=== PATIENT | male | born 1945 | race Caucasian/White ===

== ENCOUNTER 2021-01-21 14:20 | Inpatient (IN) | payer MEDICARE ==
[~2021-01-21] VITALS: Ht 172.7 cm; Wt 72.6 kg
[~2021-01-21 14:20] MED LIST: SULTRIDS PO
[2021-01-21 15:18] LABS: Hematocrit 30.7 % (37.0-53.0); Hemoglobin 11.3 g/dL (13.5-17.5); Mean Corpuscular HGB 34.6 pg (26.0-34.0); Mean Corpuscular HGB Conc 36.8 g/dL (31.5-36.5); Mean Corpuscular Volume 94 fL (80-100); Mean Platelet Volume 9.3 fL (9.1-12.4); Platelet Count 190 K/mm3 (150-400); RDW Coefficient Variation 12.3 % (11.7-14.2); RDW Standard Deviation 42.8 fL (35.1-46.3); Red Blood Cell Count 3.27 M/mm3 (4.30-5.90); White Blood Cell Count 24.42 K/mm3 (4.00-11.30)
[2021-01-21 15:37] LABS: Alanine Aminotransfer (ALT/SGP 24 U/L (12-78); Albumin, Blood 2.5 g/dL (3.4-5.0); Albumin/Globulin Ratio 0.6 (0.8-1.8); Alk Phos 93 U/L (50-136); Anion Gap 11 mmol/L (6-16); Aspartate Aminotrans (AST/SGOT 30 U/L (12-37); Bilirubin, Total 0.6 mg/dL (0.1-1.0); Blood Urea Nitrogen 64 mg/dL (8-24); Bun/Creatinine Ratio 23.5 (12.0-20.0); CO2, Blood 24 mmol/L (21-32); Calcium, Blood 8.3 mg/dL (8.5-10.1); Chloride, Blood 89 mmol/L (98-108); Creatinine, Blood 2.72 mg/dL (0.60-1.20); Ethanol (Alcohol), Blood, Med <3 mg/dL; Globulin, Blood 4.1 g/dL (2.2-4.0); Glomerular Filtration Rate 24 (60-); Glucose, Blood 104 mg/dL (70-99); International Normalized Ratio 1.09; Potassium, Blood 3.9 mmol/L (3.5-5.5); Prothrombin Time Results 11.6 Sec (9.7-11.5); Sodium, Blood 124 mmol/L (136-145); Total Protein, Blood 6.6 g/dL (6.4-8.2)
[2021-01-21 15:48] LABS: BAND PERCENT MAN 12 % (0-8); BASOPHILS PERCENT MAN 0 % (0-2); EOSINOPHILS PERCENT MAN 0 % (0-6); MONOCYTES ABSOLUTE MAN 0.97 K/mm3 (0.16-1.47); MONOCYTES PERCENT MAN 4 % (4-13); NEUTROPHILS ABSOLUTE MAN 23.44 K/mm3 (1.96-9.15); SEG NEUTROPHILS PERCENT MAN 84 % (41-73); TOTAL CELLS COUNTED 100
--- NOTE | 2021-01-21 17:14 | NUR ---
ED Palliative Care Consult Spoke with Dr Aguilar and discussed case. Pt to the ED for altered mentation. Pt to be admitted by hospitalist Madeline. CONSULTANT Madeline enters Pt's room at the same time as this RN. Deedee exams Pt and determines Pt is confused and has poor insight at this time. Madeline speaks with Pt's daughter Esther and discusses plan of care. At this time daughter Esther would like Pt to be full code. Madeline will place inpatient Palliative Care consult. Palliative Care will F/U when Pt is admitted to the floor.
--- NOTE | 2021-01-21 19:00 | NUR ---
ASSUMED CARE RECEIVED REPORT FROM GISELE LOFTON. PT LYING IN BED COMFORTABLY, IN NO ACUTE DISTRESS. VS OBTAINED. PT DENIES NEEDS AT THIS TIME. CALL LIGHT, POSSESSIONS IN REACH, BED IN LOW POSITION WITH ALARMS ON.
--- NOTE | 2021-01-21 20:37 | NUR ---
PHYSICIAN COMMUNICATION SPOKE TO MAHESH JONES REGARDING PT REMOVING TELE AND CRITICAL LACTIC ACID. ORDERS RECEIVED.
--- NOTE | 2021-01-21 22:20 | NUR ---
SPOKE TO MAHESH JONES REGARDING PT'S PENDING TOX SCREEN. NO NEW ORDERS RECEIVED AT THIS TIME.
[2021-01-21 22:54] LABS: U Amphetamine Screen Not Detected; U Barbituate Screen Not Detected; U Benzodiazapine Screen Not Detected; U Cocaine Screen Not Detected; U Methadone Screen Not Detected; U Methamphetamine Screen Not Detected
[2021-01-21 22:55] LABS: U Buprenorphine Screen Not Detected; U Cannabinoids Screen Not Detected; U Opiates Screen Not Detected; U Oxycodone Screen Not Detected; U Phencyclidine Screen Not Detected; U Propoxyphene Screen Not Detected
[2021-01-22 01:12] LABS: Source, Urine Clean Catch
[2021-01-22 01:20] LABS: Bilirubin, Urine Neg (Neg); Blood, Urine 4+ (Neg); Glucose Qualitative, Urine Neg (Neg); Ketones, Urine Neg (Neg); Leukocyte Esterase, Urine 3+ (Neg); Nitrite, Urine Neg (Neg); Protein, Urine 2+ (Neg); Urobilinogen, Urine NORM (Normal)
[2021-01-22 01:30] LABS: Appearance, Urine Cloudy (Clear); Bacteria Many /hpf; Color, Urine Yellow (P-Yellow); Red Blood Cells, Urine Rare /hpf (0-2); Squamous Epithelial Cells Not Seen /hpf (Few); White Blood Cells, Urine TNTC /hpf (0-5)
--- NOTE | 2021-01-22 03:10 | NUR ---
CAMERA MONITORING VERIFIED WITH KUN ERICKSON
--- NOTE | 2021-01-22 04:43 | NUR ---
DIRECTOR MARKET RESEARCH SUMMARY A&O X2-3, CONFUSED AT TIMES. PT LYING IN BED, IN NO ACUTE DISTRESS. VS REVIEWED, HR RUNNING IN 110'S, PT ASYMPTOMATIC; OTHER VS WNL. PT HAS BEEN ASLEEP THROUGHOUT MUCH OF THE NIGHT. SEPSIS IVF INFUSED, MAINTENANCE IVF ONGOING. CALLS OUT FOR FAMILY MEMBERS, OR ASKS FOR ITEMS NOT IN ROOM; RE-ORIENTED TO SURROUNDINGS. NO OTHER ACUTE CHANGES IN CONDITION NOTED. CALL LIGHT AND POSSESSIONS IN REACH, BED IN LOW POSITION WITH ALARMS ON. BILATERAL SOFT WRIST RESTRAINTS IN PLACE. WILL REPORT OFF TO DAY RN.
[2021-01-22 05:25] LABS: Hematocrit 29.6 % (37.0-53.0); Hemoglobin 10.7 g/dL (13.5-17.5); Mean Corpuscular HGB 34.4 pg (26.0-34.0); Mean Corpuscular HGB Conc 36.1 g/dL (31.5-36.5); Mean Corpuscular Volume 95 fL (80-100); Mean Platelet Volume 9.7 fL (9.1-12.4); Platelet Count 158 K/mm3 (150-400); RDW Coefficient Variation 12.6 % (11.7-14.2); RDW Standard Deviation 43.7 fL (35.1-46.3); Red Blood Cell Count 3.11 M/mm3 (4.30-5.90); White Blood Cell Count 27.78 K/mm3 (4.00-11.30)
[2021-01-22 05:45] LABS: Albumin, Blood 2.2 g/dL (3.4-5.0); Anion Gap 14 mmol/L (6-16); Blood Urea Nitrogen 68 mg/dL (8-24); Bun/Creatinine Ratio 24.6 (12.0-20.0); CO2, Blood 18 mmol/L (21-32); Calcium, Blood 7.5 mg/dL (8.5-10.1); Chloride, Blood 99 mmol/L (98-108); Creatinine, Blood 2.76 mg/dL (0.60-1.20); Glomerular Filtration Rate 24 (60-); Glucose, Blood 103 mg/dL (70-99); Phosphorus, Blood 3.5 mg/dL (2.5-4.9); Potassium, Blood 3.3 mmol/L (3.5-5.5); Sodium, Blood 131 mmol/L (136-145)
[2021-01-22 05:47] LABS: BAND PERCENT MAN 22 % (0-8); BASOPHILS PERCENT MAN 0 % (0-2); EOSINOPHILS PERCENT MAN 0 % (0-6); LYMPHOCYTES ABSOLUTE MAN 0.27 K/mm3 (0.84-5.20); LYMPHOCYTES PERCENT MAN 1 % (21-46); MONOCYTES ABSOLUTE MAN 0.55 K/mm3 (0.16-1.47); MONOCYTES PERCENT MAN 2 % (4-13); NEUTROPHILS ABSOLUTE MAN 26.94 K/mm3 (1.96-9.15); SEG NEUTROPHILS PERCENT MAN 75 % (41-73); TOTAL CELLS COUNTED 100
--- NOTE | 2021-01-22 05:55 | NUR ---
SPOKE TO DR. SEWELL REGARDING PT'S HR AVERAGING IN 110'S-120. ORDERS RECEIVED.
--- NOTE | 2021-01-22 11:38 | NUR ---
SPOKE TO PT'S DAUGHTER ADINA BY PHONE AT 1015, GAVE UPDATE ON PATIENT'S CONDITION AND PLAN GOING FORWARD. ADINA STATED THAT SHE IS PATIENT'S POWER OF PRESCHOOL ASSISTANT BUT DID NOT SPECIFY IF LEGAL OR MEDICAL. BEST NUMBER [phone].
--- NOTE | 2021-01-22 12:38 | NUR ---
SPOKE TO PT'S OTHER DAUGHTER EVERARDO WHO LIVES IN [place]. SHE IS VERY CONCERNED ABOUT THE POSSIBILITY OF PT BEING DISCHARGED BACK TO THE SAME ENVIRONMENT. SHE STATED HER SISTER ADINA USES DRUGS AND ALCOHOL, DOES THE PERSON SHE LIVES WITH. ALSO STATED THAT PT HAS BEEN A DAILY ETOH DRINKER FOR MANY YEARS; AND THAT ADINA IS NOT CAPABLE OF TAKING CARE OF PATIENT. EVERARDO DOES NOT HAVE CONTACT WITH ADINA. BEST PHONE NUMBER FOR EVERARDO: [phone]
--- NOTE | 2021-01-22 17:55 | NUR ---
SHIFT SUMMARY: ALERT TO SELF ONLY, IS PLEASANT. RESTRAINTS REMOVED AT 1120 THIS MORNING AND BEHAVIOR HAS BEEN APPROPRIATE. NO EVENTS ON TELEMETRY, SINUS TACH LOW 100'S. COARSE BREATH SOUNDS THROUGHOUT, NICOTINE PATCH PLACED. ASSESSING FOR ETOH W/D SXS; CIWA SCORE HAS BEEN < 8 SO FAR THIS SHIFT. SKIN ON BUTTOCKS SLIGHTLY EXCORIATED; CONDOM CATH PLACED TO KEEP POWER PLANT OPERATOR. ABDOMEN STILL FIRM, NO BM TODAY. APPETITE IS QUITE POOR AND DIFFICULTY SWALLOWING NOTED; SPEECH EVAL ORDERED.
--- NOTE | 2021-01-22 19:05 | NUR ---
ASSUMED CARE RECEIVED REPORT FROM GISELE LOFTON. PT ASLEEP, IN NO ACUTE DISTRESS. RESPS E/U. NO ACUTE NEEDS ASSESSED AT THIS TIME. CALL LIGHT, POSSESSIONS IN REACH, BED IN LOW POSITION WITH ALARMS ON.
--- NOTE | 2021-01-22 19:40 | NUR ---
PHYSICIAN CORRESPONDENCE SPOKE TO MAHESH JONES REGARDING PT'S HR TRENDING IN THE 110'S AND INCREASING/SUSTAINING IN THE 120'S. NOTIFIED OF PT'S CHOKING ON PILLS THIS AM, PER REPORT FROM DAY RN. PHYSICIAN ENTERING ORDERS INTO Faculte. WILL CONTINUE TO ASSESS PT FOR CHANGES IN HR AND CONDITION.
--- NOTE | 2021-01-22 21:00 | NUR ---
CAMERA MONITORING VERIFIED WITH KUN ODOM IN REMOTE MONITORING.
--- NOTE | 2021-01-22 23:25 | NUR ---
THIS RN CALLED PT'S DAUGHTER, EVERARDO, TO PROVIDE AN UPDATE. NO RESPONSE. LEFT A MESSAGE AND PROVIDED MEDICAL FLOOR CONTACT INFORMATION.
--- NOTE | 2021-01-23 03:34 | NUR ---
FUEL CELL DESIGNER SUMMARY PT A&OX1, LOC IMPROVING, CALLS OUT AND MAKES NEEDS KNOWN. ASLEEP AT THIS TIME, IN NO ACUTE DISTRESS. VS REVIEWED,PT TACHYCARDIC, OTHER VS WNL. PT ASYMPTOMATIC. DENIES PAIN. HAS BEEN SLEEPING OFF AND ON THROUGH THE NIGHT. TOLERATED IVF BOLUS WELL, BP'S STABLE. CIWAS STABLE, AVERAGING 4-5. DENIES KITCHEN. TOOK MEDS CRUSHED IN APPLESAUCE, TOLERATED FAIRLY; SWALLOWS THIN LIQUIDS EASILY VIA STRAW, UNINTERESTED IN FURTHER ORAL INTAKE; NO S/S ASPIRATION NOTED. SPEECH EVALUATION PENDING. NO OTHER ACUTE EVENTS NOTED OVERNIGHT. NO ACUTE NEEDS ASSESSED AT THIS TIME. CALL LIGHT, POSSESSIONS IN REACH, BED IN LOW POSITION. WILL CONTINUE TO PROVIDE CARE UNTIL REPORT GIVEN TO ONCOMING RN.
[2021-01-23 05:46] LABS: Bun/Creatinine Ratio 28.1 (12.0-20.0); Calcium, Blood 7.6 mg/dL (8.5-10.1); Creatinine, Blood 2.67 mg/dL (0.60-1.20); Potassium, Blood 3.2 mmol/L (3.5-5.5)
[2021-01-23 07:07] LABS: Hemoglobin 11.7 g/dL (13.5-17.5); Mean Corpuscular HGB 34.5 pg (26.0-34.0); Mean Corpuscular HGB Conc 36.6 g/dL (31.5-36.5); Mean Corpuscular Volume 94 fL (80-100); Platelet Count 141 K/mm3 (150-400); RDW Coefficient Variation 12.9 % (11.7-14.2); RDW Standard Deviation 45.1 fL (35.1-46.3); Red Blood Cell Count 3.39 M/mm3 (4.30-5.90); White Blood Cell Count 22.74 K/mm3 (4.00-11.30)
--- NOTE | 2021-01-23 14:27 | NUR ---
Pt resting in bed with his eyes closed. Pt appears comfortable with no S/S of distress at this time. This RN did not disturb Pt at this time. Spoke with Bedside RN Eileen, discussed case, and reviewed plan of care. Pt remains confused. Daughter Esther called today and reports plan to visit Pt tomorrow. Spoke with Caremanager Yelena and discussed case. Plan to call APS for report on investigation. Daughter Augusta expresses concerns regarding Pt going back home to live with Esther. Plan: Discuss code status with Pt if mentation improves. If needed will discuss with both daughters and discuss considering completing POLST.
--- NOTE | 2021-01-23 18:40 | NUR ---
SHIFT SUMMARY PT A&O TO SELF. PT CAN OCCASIONAL LET STAFF KNONW OF NEEDS IF IN ROOM, HE DOES NOT USE CALL LIGHT. PT HAS BEEN PLESANT AND ACCEPTING OF CARE. PT DID NOT EAT MUCH DURING SHIFT. IN MORNING PT WAS AFIB 110, AFTERNOON PT WAS SINUS TACH 120 WITH PVC, DR NOTIFED AND MEDICATION UPDATED. PT RECEIVED ECHO IN AFTERNOON. HE PULLED OFF CONDOM CATH TWO TIMES THIS SHIFT. PT RESTING IN BED, CALL LIGHT W/IN REACH.
[2021-01-23 18:56] LABS: Magnesium, Blood 1.3 mg/dL (1.6-2.4); Percent Saturation 14.6 % (20.0-50.0)
--- NOTE | 2021-01-23 21:20 | NUR ---
1950 PT RESTING COMFORTABLY IN BED; ABLE TO FOLLOW SIMPLE VERBAL COMMANDS; BED ALARM APPLIED FOR SAFETY.
--- NOTE | 2021-01-24 03:23 | NUR ---
SHIFT SUMMARY: 75 Y/O MALE RESTED COMFORTABLY IN BED ALL SHIFT; PT ALERT AND ORIENTED X 1, ABLE TO FOLLOW SIMPLE VERBAL COMMANDS; DENIES PAIN OR NAUSEA; CIWA 8; PT HAD EPISODE OF AGITATION BEGINNING OF SHIFT WITH ZYPREXA 10MG PO GIVEN WITH GOOD RELIEF FELT HE SLEPT WELL REST OF SHIFT; BED ALARM APPLIED FOR SAFETY, BED LOW POSITION WITH CALL LIGHT AT SIDE.
[2021-01-24 05:57] LABS: BASOPHILS ABSOLUTE AUTO 0.07 K/mm3 (0.00-0.23); BASOPHILS PERCENT AUTO 0 % (0-2); EOSINOPHILS ABSOLUTE AUTO 0.03 K/mm3 (0.00-0.68); EOSINOPHILS PERCENT AUTO 0 % (0-6); Hematocrit 32.7 % (37.0-53.0); Hemoglobin 11.8 g/dL (13.5-17.5); IMMATURE GRAN ABSOLUTE AUTO 0.86 K/mm3 (0.00-0.10); IMMATURE GRAN PERCENT AUTO 5 % (0-1); LYMPHOCYTES ABSOLUTE AUTO 0.76 K/mm3 (0.84-5.20); LYMPHOCYTES PERCENT AUTO 4 % (21-46); MONOCYTES ABSOLUTE AUTO 1.35 K/mm3 (0.16-1.47); MONOCYTES PERCENT AUTO 7 % (4-13); Mean Corpuscular HGB 33.8 pg (26.0-34.0); Mean Corpuscular HGB Conc 36.1 g/dL (31.5-36.5); Mean Corpuscular Volume 94 fL (80-100); Mean Platelet Volume 10.2 fL (9.1-12.4); NEUTROPHILS ABSOLUTE AUTO 16.09 K/mm3 (1.96-9.15); NEUTROPHILS PERCENT AUTO 84 % (41-73); Platelet Count 125 K/mm3 (150-400); RDW Coefficient Variation 12.9 % (11.7-14.2); RDW Standard Deviation 44.6 fL (35.1-46.3); Red Blood Cell Count 3.49 M/mm3 (4.30-5.90); White Blood Cell Count 19.16 K/mm3 (4.00-11.30)
[2021-01-24 06:10] LABS: Albumin, Blood 1.9 g/dL (3.4-5.0); Anion Gap 11 mmol/L (6-16); Blood Urea Nitrogen 82 mg/dL (8-24); Bun/Creatinine Ratio 25.3 (12.0-20.0); CO2, Blood 19 mmol/L (21-32); Calcium, Blood 7.4 mg/dL (8.5-10.1); Chloride, Blood 101 mmol/L (98-108); Creatinine, Blood 3.24 mg/dL (0.60-1.20); Glomerular Filtration Rate 20 (60-); Glucose, Blood 113 mg/dL (70-99); Magnesium, Blood 1.7 mg/dL (1.6-2.4); Phosphorus, Blood 3.6 mg/dL (2.5-4.9); Potassium, Blood 3.3 mmol/L (3.5-5.5); Sodium, Blood 131 mmol/L (136-145)
--- NOTE | 2021-01-24 18:42 | NUR ---
SHIFT SUMMARY PT VERY DROWSY THIS MORNING AND DIFFICULT TO ROUSE. DAUGHTER REPORTED HE IS GENERALLY A LATE RISER. DID WAKE LATER THIS AFTERNOON. WAS INCONTINENT BUT WOULD CONTINUE TO SPURT URINE AND LOWER ABDOMEN FELT VERY FIRM. BLADDER SCANNED FOR >1500ML. NOTIFIED MD AND JAMES PLACED. PT TOLERATED WELL. CALLED ADINA/DAUGHTER WHILE IN ROOM AND GAVE UPDATE AND PROVIDED PHONE FOR PT TO SPEAK TO HER. PT HAS MADE NO ATTEMPTS TO CLIMB OOB. EATING POORLY AND SUPPLEMENTS OFFERED BUT WOULDN'T EAT OR DRINK MORE THAN SMALL AMOUNTS.
--- NOTE | 2021-01-25 04:56 | NUR ---
SHIFT SUMMARY PT SLEPT A LOT THIS EVENING. WOKE EASILY WITH STAFF INTERACTION. NO EPISODES OF AGITATION. PT DID ACCIDENTLY PULL HIS IV OUT. NEW IV PLACED TO RFA. PT APPEARS DECONDITIONED. DRINKING FLUIDS WELL. SWELLING FROM HIS SCROTUM DOWN TO HIS FEET. APPEARS TO BE SOME WEEPING FROM SCROTUM. JAMES CATHETER IN PLACE. URINE IS DARK AND WITH A LOT OF SEDIMENT. TELEMETRY READING SR W/ PVC'S AND PAC'S AT 78. VITAL SIGNS STABLE. PT SLEEPING AT THIS TIME. WILL CONTINUE TO MONITOR AND REPORT TO DAY RN.
[2021-01-25 05:05] LABS: BASOPHILS ABSOLUTE AUTO 0.06 K/mm3 (0.00-0.23); BASOPHILS PERCENT AUTO 0 % (0-2); EOSINOPHILS ABSOLUTE AUTO 0.08 K/mm3 (0.00-0.68); EOSINOPHILS PERCENT AUTO 0 % (0-6); Hematocrit 29.5 % (37.0-53.0); Hemoglobin 10.6 g/dL (13.5-17.5); IMMATURE GRAN ABSOLUTE AUTO 1.08 K/mm3 (0.00-0.10); IMMATURE GRAN PERCENT AUTO 6 % (0-1); LYMPHOCYTES ABSOLUTE AUTO 1.18 K/mm3 (0.84-5.20); LYMPHOCYTES PERCENT AUTO 6 % (21-46); MONOCYTES ABSOLUTE AUTO 1.54 K/mm3 (0.16-1.47); MONOCYTES PERCENT AUTO 8 % (4-13); Mean Corpuscular HGB 33.8 pg (26.0-34.0); Mean Corpuscular HGB Conc 35.9 g/dL (31.5-36.5); Mean Corpuscular Volume 94 fL (80-100); Mean Platelet Volume 10.6 fL (9.1-12.4); NEUTROPHILS ABSOLUTE AUTO 15.27 K/mm3 (1.96-9.15); NEUTROPHILS PERCENT AUTO 80 % (41-73); Platelet Count 112 K/mm3 (150-400); RDW Coefficient Variation 13.4 % (11.7-14.2); RDW Standard Deviation 46.4 fL (35.1-46.3); Red Blood Cell Count 3.14 M/mm3 (4.30-5.90); White Blood Cell Count 19.21 K/mm3 (4.00-11.30)
[2021-01-25 05:20] LABS: Albumin, Blood 1.6 g/dL (3.4-5.0); Anion Gap 12 mmol/L (6-16); Blood Urea Nitrogen 82 mg/dL (8-24); Bun/Creatinine Ratio 25.9 (12.0-20.0); CO2, Blood 18 mmol/L (21-32); Calcium, Blood 7.2 mg/dL (8.5-10.1); Chloride, Blood 104 mmol/L (98-108); Creatinine, Blood 3.16 mg/dL (0.60-1.20); Glomerular Filtration Rate 20 (60-); Glucose, Blood 91 mg/dL (70-99); Magnesium, Blood 1.6 mg/dL (1.6-2.4); Phosphorus, Blood 4.2 mg/dL (2.5-4.9); Potassium, Blood 3.1 mmol/L (3.5-5.5); Sodium, Blood 134 mmol/L (136-145)
--- NOTE | 2021-01-25 18:44 | NUR ---
SHIFT SUMMARY PT SLEEPING A LOT TODAY. WOULDN'T EAT MORE THAN A BITE OR TWO OF MEALS. SUPPLEMENTS OFFERED. DAUGHTER IN TO SEE PT THIS AFTERNOON AND PT APPEARED QUITE HAPPY TO SEE HER. HAS A MOIST COUGH BUT DOESN'T APPEAR TO BE IN RESP DISTRESS. LE'S QUITE EDEMATOUS. MD NOTIFIED. LE'S ELEVATED ON PILLOWS. 2 SMALL OPEN AREAS ON BUTTOCKS. DRESSING APPLIED AND KEPT ON SIDE. URINE IN JAMES APPEARS MORE TORY TODAY THAN TEA COLORED.
--- NOTE | 2021-01-26 04:38 | NUR ---
SHIFT SUMMARY PT SLEPT THROUGH MOST OF THE NIGHT. REPOSITIONED IN BED BUT PT TENDS TO PREFER THE RIGHT SIDE AND HE TURNS HIMSELF BACK. PT DECONDITIONED. POOR APPETITE BUT DRINKS WELL. PT INCONTINENT OF STOOL. 1 MEDIUM FORMED BM THIS EVENING. JAMES CATHETER PATENT AND DRAINING. URINE LOOKING SCADA OPERATOR THIS EVENING AND WITH LESS SEDIMENT. SWELLING CONTINUES FROM SCROTUM DOWN BUT ALSO IMPROVED THIS EVENING. VITAL SIGNS STABLE. NO ACUTE CHANGES THIS EVENING. WILL CONTINUE TO MONITOR.
[2021-01-26 05:22] LABS: BASOPHILS ABSOLUTE AUTO 0.06 K/mm3 (0.00-0.23); BASOPHILS PERCENT AUTO 0 % (0-2); EOSINOPHILS ABSOLUTE AUTO 0.14 K/mm3 (0.00-0.68); EOSINOPHILS PERCENT AUTO 1 % (0-6); Hematocrit 30.2 % (37.0-53.0); Hemoglobin 10.6 g/dL (13.5-17.5); IMMATURE GRAN ABSOLUTE AUTO 1.12 K/mm3 (0.00-0.10); IMMATURE GRAN PERCENT AUTO 7 % (0-1); LYMPHOCYTES ABSOLUTE AUTO 1.39 K/mm3 (0.84-5.20); LYMPHOCYTES PERCENT AUTO 9 % (21-46); MONOCYTES ABSOLUTE AUTO 1.33 K/mm3 (0.16-1.47); MONOCYTES PERCENT AUTO 8 % (4-13); Mean Corpuscular HGB 33.5 pg (26.0-34.0); Mean Corpuscular HGB Conc 35.1 g/dL (31.5-36.5); Mean Corpuscular Volume 96 fL (80-100); Mean Platelet Volume 10.4 fL (9.1-12.4); NEUTROPHILS ABSOLUTE AUTO 12.22 K/mm3 (1.96-9.15); NEUTROPHILS PERCENT AUTO 75 % (41-73); Platelet Count 145 K/mm3 (150-400); RDW Coefficient Variation 13.4 % (11.7-14.2); RDW Standard Deviation 46.9 fL (35.1-46.3); Red Blood Cell Count 3.16 M/mm3 (4.30-5.90); White Blood Cell Count 16.26 K/mm3 (4.00-11.30)
[2021-01-26 05:53] LABS: Magnesium, Blood 1.5 mg/dL (1.6-2.4)
[2021-01-26 05:54] LABS: Albumin, Blood 1.8 g/dL (3.4-5.0); Anion Gap 10 mmol/L (6-16); Blood Urea Nitrogen 81 mg/dL (8-24); Bun/Creatinine Ratio 29.2 (12.0-20.0); CO2, Blood 21 mmol/L (21-32); Calcium, Blood 7.6 mg/dL (8.5-10.1); Chloride, Blood 104 mmol/L (98-108); Creatinine, Blood 2.77 mg/dL (0.60-1.20); Glomerular Filtration Rate 24 (60-); Glucose, Blood 102 mg/dL (70-99); Phosphorus, Blood 3.6 mg/dL (2.5-4.9); Potassium, Blood 3.2 mmol/L (3.5-5.5); Sodium, Blood 135 mmol/L (136-145)
--- NOTE | 2021-01-26 19:38 | NUR ---
PT AWAKE AND ALERT TO PERSON SELF AND PLACE. HE HAS BEEN PLEASANT AND COOPERATIVE. UP WITH PT TODAY TO CHAIR, MAX 2 ASSIST, EASILY TIRED. BM TODAY. JAMES DRAINING TO GRAVITY. APPETITE POOR, FOOD FLUID INTAKE. DENIES PAIN. BL EXPIRATORY WHEEZES NOTED, DENIES SOB. BL+1 EDEMA NOTED. PATENT IV R FOREARM REPORT GIVEN TO ADEEL RN
--- NOTE | 2021-01-26 19:42 | NUR ---
RECEIVED BEDSIDE REPORT FROM GISELE VALDEZ. PT SITTING UP IN BED WATCHING TV. ON RA. NO NEEDS AT THIS TIME. WILL PROVIDE CARE T/O SHIFT. CALL LT IN REACH.
--- NOTE | 2021-01-26 21:30 | NUR ---
MEPILEX TO BILAT HEELS. HEELS FLOATED.
--- NOTE | 2021-01-27 00:01 | NUR ---
WATER GIVEN TO PT. CALL LT IN REACH.
--- NOTE | 2021-01-27 03:03 | NUR ---
PT AWAKE SITTING UP IN BED, WATER GIVEN. NO OTHER NEEDS. CALL LT IN REACH.
--- NOTE | 2021-01-27 04:35 | NUR ---
SHIFT SUMMARY: NO ACUTE CHANGES. NO COMPLAINTS OF PAIN, SOB, OR NAUSEA. ON RA. COOPERATIVE WITH CARE. LARGE SOFT BM. REDDENED PERIAREA, BARRIER CREAM APPLIED. MEDS GIVEN IN APPLESAUCE, PT MOSTLY CHEWED PILLS THEN SWALLOWED. NO COUGHING NOTED. DIURESING WELL, 1800 OUT OF JAMES. BILAT HEELS IN MEPILEX AND HEELS FLOATED TO PREVENT SKIN BREAKDOWN. WILL CONTINUE TO PROVIDE CARE UNTIL SHIFT REPORT.
[2021-01-27 05:06] LABS: BASOPHILS ABSOLUTE AUTO 0.06 K/mm3 (0.00-0.23); BASOPHILS PERCENT AUTO 0 % (0-2); EOSINOPHILS ABSOLUTE AUTO 0.14 K/mm3 (0.00-0.68); EOSINOPHILS PERCENT AUTO 1 % (0-6); Hematocrit 29.3 % (37.0-53.0); Hemoglobin 10.5 g/dL (13.5-17.5); IMMATURE GRAN ABSOLUTE AUTO 1.25 K/mm3 (0.00-0.10); IMMATURE GRAN PERCENT AUTO 7 % (0-1); LYMPHOCYTES ABSOLUTE AUTO 1.63 K/mm3 (0.84-5.20); LYMPHOCYTES PERCENT AUTO 9 % (21-46); MONOCYTES ABSOLUTE AUTO 1.19 K/mm3 (0.16-1.47); MONOCYTES PERCENT AUTO 7 % (4-13); Mean Corpuscular HGB 34.2 pg (26.0-34.0); Mean Corpuscular HGB Conc 35.8 g/dL (31.5-36.5); Mean Corpuscular Volume 95 fL (80-100); Mean Platelet Volume 11.4 fL (9.1-12.4); NEUTROPHILS ABSOLUTE AUTO 13.57 K/mm3 (1.96-9.15); NEUTROPHILS PERCENT AUTO 76 % (41-73); Platelet Count 142 K/mm3 (150-400); RDW Coefficient Variation 13.3 % (11.7-14.2); RDW Standard Deviation 46.2 fL (35.1-46.3); Red Blood Cell Count 3.07 M/mm3 (4.30-5.90); White Blood Cell Count 17.84 K/mm3 (4.00-11.30)
[2021-01-27 05:21] LABS: Albumin, Blood 1.8 g/dL (3.4-5.0); Anion Gap 8 mmol/L (6-16); Blood Urea Nitrogen 72 mg/dL (8-24); Bun/Creatinine Ratio 31.6 (12.0-20.0); CO2, Blood 24 mmol/L (21-32); Calcium, Blood 7.6 mg/dL (8.5-10.1); Chloride, Blood 103 mmol/L (98-108); Creatinine, Blood 2.28 mg/dL (0.60-1.20); Glomerular Filtration Rate 30 (60-); Glucose, Blood 101 mg/dL (70-99); Magnesium, Blood 1.4 mg/dL (1.6-2.4); Phosphorus, Blood 3.1 mg/dL (2.5-4.9); Potassium, Blood 3.5 mmol/L (3.5-5.5); Sodium, Blood 135 mmol/L (136-145)
--- NOTE | 2021-01-27 06:02 | NUR ---
NOTIFIED HOSPITALIST OF PT'S MAGNESIUM 1.4, NEW ORDER FOR MAG RIDER 2000 MG TO BE GIVEN.
--- NOTE | 2021-01-27 17:24 | NUR ---
SHIFT SUMMARY AM RAMILA HELD THIS AM DUE TO BP OF 98/55. DR. JEONG AWARE. BPS HAVE CONTINUED TO BE SOFT T/O THE SHIFT, BUT STABLE. PT WORKED WITH PT/OT TODAY. PT GOT UP TO CHAIR FOR LUNCH. POOR APPETITE. PT PRIMARILY ONLY DRANK HIS ENSURE. PT HAS NAPPED MOST THE DAY. WAKES TO VERBAL STIMULI. JAMES REMOVED AT 1500. PT HAS YET TO VOID AT THIS TIME. NO OTHER ACUTE CHANGES IN ASSESSMENT AT THIS TIME. VS REVIEWED. PT RESTING IN BED. CALL LIGHT IN REACH.
--- NOTE | 2021-01-28 06:03 | NUR ---
SUMMARY PT HAD VERY LITTLE URINE OUTPUT. PT BLADDER SCANNED AND NOTED >1000ML. DR HIGHTOWER CALLED AND ORDERED STRIGHT CATH. 1800 ML REMOVED. PT DENIED ANY DISCOMFORT. PT HAD SLEPT T/O SHIFT W/O ISSUE. PT CURRENTLY SLEEPING IN NO DISTRESS. CALL LIGHT IN REACH AND BED ALARM ON.
[2021-01-28 06:24] LABS: Hematocrit 28.5 % (37.0-53.0); Hemoglobin 10.1 g/dL (13.5-17.5); Mean Corpuscular HGB 33.9 pg (26.0-34.0); Mean Corpuscular HGB Conc 35.4 g/dL (31.5-36.5); Mean Corpuscular Volume 96 fL (80-100); Mean Platelet Volume 10.5 fL (9.1-12.4); Platelet Count 191 K/mm3 (150-400); RDW Coefficient Variation 13.2 % (11.7-14.2); RDW Standard Deviation 45.7 fL (35.1-46.3); Red Blood Cell Count 2.98 M/mm3 (4.30-5.90); White Blood Cell Count 15.48 K/mm3 (4.00-11.30)
[2021-01-28 06:53] LABS: Albumin/Globulin Ratio 0.5 (0.8-1.8); Bilirubin, Total 0.4 mg/dL (0.1-1.0); Bun/Creatinine Ratio 31.8 (12.0-20.0); Calcium, Blood 7.8 mg/dL (8.5-10.1); Creatinine, Blood 1.92 mg/dL (0.60-1.20); Globulin, Blood 3.8 g/dL (2.2-4.0); Magnesium, Blood 1.7 mg/dL (1.6-2.4); Phosphorus, Blood 3.1 mg/dL (2.5-4.9); Potassium, Blood 3.1 mmol/L (3.5-5.5); Total Protein, Blood 5.8 g/dL (6.4-8.2)
[2021-01-28 06:54] LABS: BAND PERCENT MAN 4 % (0-8); BASOPHILS PERCENT MAN 0 % (0-2); EOSINOPHILS ABSOLUTE MAN 0.15 K/mm3 (0.00-0.68); EOSINOPHILS PERCENT MAN 1 % (0-6); LYMPHOCYTES ABSOLUTE MAN 2.01 K/mm3 (0.84-5.20); LYMPHOCYTES PERCENT MAN 13 % (21-46); METAMYELOCYTE ABSOLUTE MAN 0.15 K/mm3 (0.00-0.00); METAMYELOCYTE PERCENT MAN 1 % (0-0); MONOCYTES ABSOLUTE MAN 1.23 K/mm3 (0.16-1.47); MONOCYTES PERCENT MAN 8 % (4-13); MYELOCYTE ABSOLUTE MAN 0.46 K/mm3 (0.00-0.00); MYELOCYTE PERCENT MAN 3 % (0-0); NEUTROPHILS ABSOLUTE MAN 11.45 K/mm3 (1.96-9.15); SEG NEUTROPHILS PERCENT MAN 70 % (41-73); TOTAL CELLS COUNTED 100
--- NOTE | 2021-01-28 16:07 | NUR ---
PTS DAUGHTER CAME IN AND ASKED MARCEL FROM DISCHARGE PLANNING AND MYSELF TO SIGN PAPERS WITNESS FOR HER TRYING TO OBTAIN POWER OF TRIMMER HELPER. PT EXPRESSED GREAT DESIRE THAT HIS DAUGHTER HAVE THE ABILITY TO MAKE DECISIONS FOR HIM. HE WAS ALERT AND ORIENTED X4 AND ANSWERED ALL QUESTIONS APPROPRIATELY.
--- NOTE | 2021-01-28 18:27 | NUR ---
NO ACUTE CHANGES. PT IS ALERT AND ABLE TO EXPRESS DESIRES. PO INTAKE LOW AND MUST BE ENCOURAGED TO EAT. HE IS PLEASANT AND COOPERATIVE WITH CARES. FLUIDS ENCOURAGED WELL. CALL LIGHT WITHIN REACH.
[2021-01-29 04:39] LABS: BASOPHILS ABSOLUTE AUTO 0.05 K/mm3 (0.00-0.23); BASOPHILS PERCENT AUTO 0 % (0-2); EOSINOPHILS ABSOLUTE AUTO 0.11 K/mm3 (0.00-0.68); EOSINOPHILS PERCENT AUTO 1 % (0-6); Hematocrit 26.4 % (37.0-53.0); Hemoglobin 9.2 g/dL (13.5-17.5); IMMATURE GRAN ABSOLUTE AUTO 0.72 K/mm3 (0.00-0.10); IMMATURE GRAN PERCENT AUTO 5 % (0-1); LYMPHOCYTES ABSOLUTE AUTO 1.61 K/mm3 (0.84-5.20); LYMPHOCYTES PERCENT AUTO 11 % (21-46); MONOCYTES ABSOLUTE AUTO 1.03 K/mm3 (0.16-1.47); MONOCYTES PERCENT AUTO 7 % (4-13); Mean Corpuscular HGB 33.6 pg (26.0-34.0); Mean Corpuscular HGB Conc 34.8 g/dL (31.5-36.5); Mean Corpuscular Volume 96 fL (80-100); Mean Platelet Volume 9.8 fL (9.1-12.4); NEUTROPHILS PERCENT AUTO 76 % (41-73); Platelet Count 221 K/mm3 (150-400); RDW Coefficient Variation 13.5 % (11.7-14.2); Red Blood Cell Count 2.74 M/mm3 (4.30-5.90); White Blood Cell Count 14.72 K/mm3 (4.00-11.30)
[2021-01-29 05:13] LABS: Anion Gap 7 mmol/L (6-16); Blood Urea Nitrogen 55 mg/dL (8-24); Bun/Creatinine Ratio 32.5 (12.0-20.0); CO2, Blood 28 mmol/L (21-32); Calcium, Blood 7.7 mg/dL (8.5-10.1); Chloride, Blood 100 mmol/L (98-108); Creatinine, Blood 1.69 mg/dL (0.60-1.20); Glomerular Filtration Rate 42 (60-); Glucose, Blood 85 mg/dL (70-99); Magnesium, Blood 1.4 mg/dL (1.6-2.4); Potassium, Blood 3.2 mmol/L (3.5-5.5); Sodium, Blood 135 mmol/L (136-145)
--- NOTE | 2021-01-29 06:28 | NUR ---
BLADDER SCAN [T SCANNED TWICE THIS SHIFT. 2000 ML REMOVED FIRST TIME AND 850 ML SECOND. PT DENIED ANY DISCOMFORT.
--- NOTE | 2021-01-29 17:21 | NUR ---
PT IS ALERT, ORIENTED TO SELF AND SURROUNDINGS, THE PT APPEARS TO BE BREATHING EASILY ON RA AT THIS TIME, THE PT DENIED ANY PAIN T/O THE DAY, THE PT WAS INCONTNENT OF STOOL AND AT ONE TIME PULLED IT OUT OF HIS ATTENDS AND THREW IT ON THE FLOOR, THE WAS UP IN THE CHAIR FOR LUNCH TODAY AT VERY LITTLE HOWEVER DID DRINK 2 ENSURES THAT WERE OFFERED TO MIN AND A SMOOTHIE SENT FROM THE KITCHEN, THE PT WAS STRAIGHT CATHED X2 TODAY, CALL LIGHT IN REACH WILL CONTINUE TO MONITOR AND ASSESS FOR CHANGES
[2021-01-30 05:16] LABS: Hematocrit 27.1 % (37.0-53.0); Hemoglobin 9.4 g/dL (13.5-17.5); Mean Corpuscular HGB 34.1 pg (26.0-34.0); Mean Corpuscular HGB Conc 34.7 g/dL (31.5-36.5); Mean Corpuscular Volume 98 fL (80-100); Mean Platelet Volume 10.7 fL (9.1-12.4); Platelet Count 229 K/mm3 (150-400); RDW Coefficient Variation 13.5 % (11.7-14.2); RDW Standard Deviation 48.1 fL (35.1-46.3); Red Blood Cell Count 2.76 M/mm3 (4.30-5.90); White Blood Cell Count 16.52 K/mm3 (4.00-11.30)
[2021-01-30 05:46] LABS: Albumin, Blood 2.1 g/dL (3.4-5.0); Anion Gap 8 mmol/L (6-16); Blood Urea Nitrogen 45 mg/dL (8-24); Bun/Creatinine Ratio 31.2 (12.0-20.0); CO2, Blood 29 mmol/L (21-32); Chloride, Blood 99 mmol/L (98-108); Creatinine, Blood 1.44 mg/dL (0.60-1.20); Glomerular Filtration Rate 51 (60-); Glucose, Blood 97 mg/dL (70-99); Phosphorus, Blood 2.6 mg/dL (2.5-4.9); Potassium, Blood 3.5 mmol/L (3.5-5.5); Sodium, Blood 136 mmol/L (136-145)
--- NOTE | 2021-01-30 07:05 | NUR ---
NIGHTSHIFT SUMMARY Marcellus is alert, pleasant and cooperative with care overnight. Very minor complaints of general aches at HS for which he asked for tylenol, then decided he didn't need it when it was brought in. very minimal incont voids overnight, and one incont stool. Around 0300, bladder scan showed 966 ml in bladder for which 875 was withdrawn via Straight cath. No other instances overnight
--- NOTE | 2021-01-30 18:36 | NUR ---
PT IS ALERT ORIENTED X2, SELF AND PLACE, THE PT WAS DROWSY T/O THE DAY SLEPT A LOT EASILY AWAKENS TO VERBAL STIMULI, THE PT HAD A POOR APPETITE TODAY YESTERDAY PT WAS ENCOURAGED TO DRINK THE SHAKES SENT ON HIS TRAY AND ALSO ENSURE WHICH HE DID, THE PT WAS STRAIGHT CATHED AND HAD 1150 OUT, FOR A BLADDER SCAN > 1050, THE PT WORKED WITH THE PHYSICAL THERAPIST TODAY, AND WAS REPOSITIONED T/O THE DAY, CALL LIGHT IN REACH, WILL CONTINUE TO MONITOR AND ASSESS FOR CHANGES
--- NOTE | 2021-01-31 04:16 | NUR ---
STAFF TRAINER SUMMARY PT A/O X3 WITH FORGETFULNESS. SLEPT WELL TONIGHT. DENIES PAIN, SOB, NAUSEA. VSS. STRAIGHT CATHED OVERNIGHT WITH 925ML OUTPUT. NO SPONTANEOUS URINE OUTPUT. PT IS ABLE TO REPOSITION SELF IN BED. HEEL PROTECTORS IN PLACE. NO ACUTE CHANGES. CALL LIGHT WITHIN REACH, BED ALARM ON, WILL CONTINUE TO MONITOR.
[2021-01-31 04:52] LABS: BASOPHILS ABSOLUTE AUTO 0.07 K/mm3 (0.00-0.23); BASOPHILS PERCENT AUTO 1 % (0-2); EOSINOPHILS ABSOLUTE AUTO 0.06 K/mm3 (0.00-0.68); EOSINOPHILS PERCENT AUTO 1 % (0-6); Hematocrit 26.4 % (37.0-53.0); Hemoglobin 9.2 g/dL (13.5-17.5); IMMATURE GRAN ABSOLUTE AUTO 0.24 K/mm3 (0.00-0.10); IMMATURE GRAN PERCENT AUTO 2 % (0-1); LYMPHOCYTES PERCENT AUTO 13 % (21-46); MONOCYTES ABSOLUTE AUTO 1.18 K/mm3 (0.16-1.47); MONOCYTES PERCENT AUTO 9 % (4-13); Mean Corpuscular HGB 34.3 pg (26.0-34.0); Mean Corpuscular HGB Conc 34.8 g/dL (31.5-36.5); Mean Corpuscular Volume 99 fL (80-100); Mean Platelet Volume 10.1 fL (9.1-12.4); NEUTROPHILS ABSOLUTE AUTO 9.97 K/mm3 (1.96-9.15); NEUTROPHILS PERCENT AUTO 75 % (41-73); Platelet Count 263 K/mm3 (150-400); RDW Coefficient Variation 13.4 % (11.7-14.2); RDW Standard Deviation 47.9 fL (35.1-46.3); Red Blood Cell Count 2.68 M/mm3 (4.30-5.90); White Blood Cell Count 13.22 K/mm3 (4.00-11.30)
[2021-01-31 05:22] LABS: Albumin, Blood 2.2 g/dL (3.4-5.0); Anion Gap 7 mmol/L (6-16); Blood Urea Nitrogen 38 mg/dL (8-24); Bun/Creatinine Ratio 30.6 (12.0-20.0); CO2, Blood 29 mmol/L (21-32); Calcium, Blood 7.8 mg/dL (8.5-10.1); Chloride, Blood 100 mmol/L (98-108); Creatinine, Blood 1.24 mg/dL (0.60-1.20); Glomerular Filtration Rate >60 (60-); Glucose, Blood 99 mg/dL (70-99); Phosphorus, Blood 3.1 mg/dL (2.5-4.9); Potassium, Blood 3.6 mmol/L (3.5-5.5); Sodium, Blood 136 mmol/L (136-145)
[2021-01-31 13:15] LABS: Source, Urine Catheter
[2021-01-31 13:30] LABS: Appearance, Urine Clear (Clear); Bilirubin, Urine Neg (Neg); Blood, Urine 1+ (Neg); Color, Urine Yellow (P-Yellow); Glucose Qualitative, Urine Neg (Neg); Ketones, Urine Neg (Neg); Leukocyte Esterase, Urine 1+ (Neg); Nitrite, Urine Neg (Neg); Protein, Urine Neg (Neg); Specific Gravity, Urine 1.005 (1.003-1.022); Urobilinogen, Urine NORM (Normal)
[2021-01-31 13:53] LABS: Bacteria Few /hpf; Squamous Epithelial Cells Few /hpf (Few)
--- NOTE | 2021-01-31 16:52 | NUR ---
SHIFT SUMMARY PT IS ALERT. ORIENTATED TO SELF AND SURROUNDINGS. HELD METOPROLOL DUE TO BLOOD PRESSURE OF 95/62. POOR APPETITE. PATIENT ONLY DRANK ENSURE. PATIENT NAPPED FOR MOST OF THE DAY. AWAKENS BY VERBAL STIMULI. BLADDER SCAN INDICATED URINARY RETENTION. DR KELLER ORDERED JAMES CATHETER INSERTION. JAMES CATHETER INSERTED AROUND 1300. VITAL SIGNS REVIEWED. SYSTOLIC BLOOD PRESSURE HAS IMPROVED SOMEWHAT. WILL CONTINUE TO ENCOURAGE FLUID INTAKE. PATIENT RESTING COMFORABLY IN ROOM. CALL LIGHT WITH IN REACH.
--- NOTE | 2021-01-31 17:10 | NUR ---
THIS RN AGREES WITH STUDENT NURSES ASSESSMENT FOR THIS SHIFT.
--- NOTE | 2021-02-01 04:56 | NUR ---
RESTAURANT ATTENDANT SUMMARY PT SLEPT WELL TONIGHT. DENIES ANY PAIN, NAUSEA, SOB. ROOM AIR MAINTAINING GOOD O2 SATS. TAKES MEDS WHOLE IN APPLESAUCE. PLEASANT AND COOPERATIVE. A/O X3 WITH HOH. JAMES IN PLACE AND DRAINING TO GRAVITY. NO ACUTE CHANGES, VSS. WILL CONTINUE TO MONITOR. CALL LIGHT WITHIN REACH, BED ALARM ON.
--- NOTE | 2021-02-01 18:44 | NUR ---
SHIFT SUMMARY PT NAPPED ON AND OFF MORE THE DAY. REFUSED TO GET OUT OF BED. PT IV REMOVED & NO IV ACCESS ORDER OBTAINED. IV ANTIBIOTICS DCED TODAY. PT APPETITE DID IMPROVE AFTER DR. KELLER ENCOURAGED HIM TO KEEP EATING, TO THAT HE CAN EVENTUALLY BE DISCHARGED. PT ATE ALL OF HIS LUNCH AFTER THIS, BUT GOT CONFUSED AND ASKED IF HE COULD LEAVE NOW. PT REMINDED THAT HE NEEDS TO START EATING MORE AT EVERY MEAL AND PARTICIPATE IN GETTING OUT OF BED/WORKING WITH PHYSICAL THERAPY. PT HAD INCONT BM. STATING HE DID NOT NOW HE HAD POOPED. PT WAS FOUND WITH SOME BM ON HIS HANDS. HANDS WERE THOROUGHLY CLEANED & BECKY CARE COMPLETED. NO OTHER ACUTE CHANGES IN ASSESSMENT AT THIS TIME. VS REVIEWED. PT RESTING IN BED. CALL LIGHT IN REACH.
--- NOTE | 2021-02-02 05:39 | NUR ---
PT IS AWAKE, MILDLY CONFUSED, JAMES CATH DUE TO URINARY RETENTION. PLEASANT, SLEPT THROUGH SHIFT; AWAKING THIS MORNING FOR DRINK OF WATER. NO ACUTE EVENTS OVERNIGHT.
--- NOTE | 2021-02-02 17:55 | NUR ---
ALERT TO SELF AND WHERE HE IS. USES CALL LIGHT SOMETIMES;OTHERWISE, CALLS OUT. POOR APPETITE. JAMES FOR RETENTION. DOES NOT SEEM TO UNDERSTAND USING TOILET PAPER AFTER HAVING A BOWEL MOVEMENT HE USES HIS FINGERS. DOES LIKE MAGIC CUP SHAKE. UNLABORED RESPIRATIONS. WCTM
--- NOTE | 2021-02-02 21:48 | NUR ---
BP LOW (89/52 EVEN AFTER BILAT LEGS ELEVATED), CALL PLACED TO MD SOLID STATE TESTER, ORDERS FOR 500 ML NS TO BE INFUSED. #22 IV PLACED IN LEFT FOREARM AND IVF INITIATED. TOLERATED WELL
--- NOTE | 2021-02-02 22:44 | NUR ---
RESTING IN BED WITH LEGS ELEVATED AND IVF INFUSING. STATES "IM FINE" WHEN ASKED HOW HE WS DOING. CALL LIGHTIN REACH. RAILS UP X 3
--- NOTE | 2021-02-02 23:18 | NUR ---
IVF INFUSED, BP 95/65. ASYMPTOMATIC. CALL LIGHT IN REACH. WILL CONTINUE TO MONITOR
--- NOTE | 2021-02-03 04:40 | NUR ---
SHIFT SUMMARY HAS BEEN RESTING QUIETLY WITH FEW INTERRUPTIONS. BP LOW MID SHIFT, LEGS ELEVATED AND MD NOTIFIED. BOLUS OF NS ORDERED AND GIVEN. BP UP TO LOW NORMAL. CALL LIGHT IN REACH. DAY SHIFT REPORTED POOR DIET INTAKE. CURRENTLY REQUESTING AND RECEIVING PO FLUIDS. AWAKE AT THIS WRITING, SMILED AFTER DRINKING SOME WATER. RAILS UP X 3
--- NOTE | 2021-02-03 12:35 | NUR ---
PATIENT WOKE UP AND SAT ON THE SIDE OF THE BED FOR BREAKFAST. HE HAS BEEN SLEEPING MOST OF THE DAY. POSSIBLE DC WITH HOSPICE TODAY OR TOMORROW
--- NOTE | 2021-02-03 18:29 | NUR ---
PATIENT IS ALERT. ORIENTED TO SELF AND FOLLOWING DIRECTIONS. THE PATIENT SLEEPS IN BED MOST OF THE SHIFT. HE IS INCONTINENT OF STOOL. JAMES IS IN PLACE. THE PLAN IS TO DC HOME WITH HOSPICE. WILL CONTINUE TO MONITOR
--- NOTE | 2021-02-03 22:05 | NUR ---
PT IN BED WITH EYES CLOSED, LIGHTS ARE OFF. RESPIRATIONS NONLABORED. NO COMPLAINTS AT THIS TIME. WILL CONTINUE TO MONITOR.
--- NOTE | 2021-02-04 03:00 | NUR ---
VALLEZ FILTER OPERATOR SUMMARY PT SLEPT MOST OF NIGHT. NO COMPLAINTS OF PAIN, CP, SOB. PT HAD NO BED EXIT ALARMS. REMAINS WITHDRAWN AND SEEMS APATHETIC. VITAL SIGNS STABLE. WILL CONTINUE TO MONITOR.
--- NOTE | 2021-02-04 05:54 | NUR ---
I AGREE WITH SILVA ARIZA STUDENT NURSE DOCUMENTATION - [facility] RN
[2021-02-04] MEDS ORDERED: ALBU2.5V5 INH (15:36)
[2021-02-04] MEDS ORDERED: ACET325 PO (15:36)
[2021-02-04] MEDS ORDERED: METO25 PO (15:37)
[2021-02-04] MEDS ORDERED: SENNA LAXATIVE8.6 MG PO (15:37)
[2021-02-04] MEDS ORDERED: Nicoderm Cq1 EAC1 TOP (15:37)
[2021-02-04] MEDS ORDERED: ZYPREXA2.5 MG PO (15:38)
[2021-02-04] MEDS ORDERED: ONDA4ODT MM (15:39)
[2021-02-04] MEDS ORDERED: MIRALAX17 GM PO (15:39)
[2021-02-04] MEDS ORDERED: K-Dur20 MEQ PO (15:41)
[2021-02-04] MEDS ORDERED: VISBIOME 112.51 EACH PO (15:42)
[2021-02-04] MEDS ORDERED: TAMS.4ER PO (15:42)
--- NOTE | 2021-02-04 17:09 | NUR ---
DISCHARGE REVIEWED WITH PT AND DAUGHTER. IV PULLED INTACT. NO TELE. PT WHEELED TO DOOR BY AIDE AT 0547
== END 2021-02-04 16:59 | disposition hospice, home (50) | DRG 871 ==
LOC: ER 14:20 → MEDS 17:37
PROVIDERS: Emergency Medicine; Internal Medicine; Nurse Practitioner Acute Care; ADMIT Hospitalist
DX: A41.51 Sepsis due to Escherichia coli [E. coli] (principal); G92 Toxic encephalopathy; I50.31 Acute diastolic (congestive) heart failure; R65.21 Severe sepsis with septic shock; N17.9 Acute kidney failure, unspecified; N39.0 Urinary tract infection, site not specified; E87.1 Hypo-osmolality and hyponatremia; E44.0 Moderate protein-calorie malnutrition; R65.20 Severe sepsis without septic shock; E86.0 Dehydration; E83.42 Hypomagnesemia; E87.6 Hypokalemia; R29.6 Repeated falls; G30.9 Alzheimer's disease, unspecified; Z68.24 Body mass index [BMI] 24.0-24.9, adult; F02.80 Dementia in other diseases classified elsewhere, unspecified severity, without behavioral disturbance, psychotic disturbance, mood disturbance, and anxiety; N40.1 Benign prostatic hyperplasia with lower urinary tract symptoms; R33.8 Other retention of urine; D69.6 Thrombocytopenia, unspecified; I48.91 Unspecified atrial fibrillation; D63.8 Anemia in other chronic diseases classified elsewhere; F10.10 Alcohol abuse, uncomplicated; J43.9 Emphysema, unspecified; F17.210 Nicotine dependence, cigarettes, uncomplicated; Z90.49 Acquired absence of other specified parts of digestive tract; Z90.89 Acquired absence of other organs
CPT/HCPCS: 36415; 51701; 70450; 71045; 74176; 80048; 80053; 80069; 81001; 82550; 82607; 82728; 82746; 82947; 83540; 83550; 83605; 83735; 83880; 84100; 85025; 85027; 85610; 87040; 87077; 87086; 87186; 92523; 92526; 92610; 93005; 93010; 93306; 94640; 94760; 97110; 97112; 97129; 97130; 97162; 97166; 97530; 97535; 99285-25; A9270; A9270-GY; G0480; J0696; J1650; J1940; J3475; J3480; J7030; J7040